=== PATIENT | male | born 1985 | race Caucasian/White ===

== ENCOUNTER 2019-12-18 19:13 | Emergency (ER) | payer SELFPAY ==
[~2019-12-18] VITALS: Ht 162.6 cm; Wt 72.6 kg
[2019-12-18 19:53] VITALS: BP 98/65
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
--- NOTE | 2019-12-19 00:07 | NUR ---
PT AMBULATED TO BED #10 WITH STEADY GAIT
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
--- NOTE | 2019-12-19 00:15 | NUR ---
DR. CARMEN CHINO AT BEDSIDE.
[2019-12-19] MEDS ORDERED: KETOROLAC 60 MG/2 ML VIAL IM ONE (00:30)
[2019-12-19] MEDS ORDERED: BACITRACIN OINT 500 UNITS/GM PKT TP ONE (00:30)
--- NOTE | 2019-12-19 00:45 | NUR ---
PT WRAPPED WITH 3" XANDER WRAP ON RIGHT KNEE. PT WOUNDS CLEANED WITH NORMAL SALINE AND 2X2 GUAZE PADS, PT WOUNDS DRESSED WITH BANDAIDS ON BI-LATERAL KNEES, WRIST AND ELBOWS.
[2019-12-19 01:09] VITALS: BP 105/60
--- NOTE | 2019-12-19 01:10 | NUR ---
Patient discharged with v/s stable. Written and verbal after care instructions given and explained. Patient alert, oriented and verbalized understanding of instructions. Ambulatory with steady gait. All questions addressed prior to discharge. ID band removed. Patient advised to follow up with PMD. Rx of NAPROSYN, NORCO given. Patient nik wrap on right knee +cms. Patient educated on indication of medication including possible reaction and side effects. Opportunity to ask questions provided and answered.
== END 2019-12-19 01:09 | disposition home or self-care (01) ==
LOC: MED 19:13
DX: S63.501A Unspecified sprain of right wrist, initial encounter (principal); S80.01XA Contusion of right knee, initial encounter; S80.211A Abrasion, right knee, initial encounter; V43.52XA Car driver injured in collision with other type car in traffic accident, initial encounter; Y93.89 Activity, other specified; Y92.89 Other specified places as the place of occurrence of the external cause; Y99.8 Other external cause status
CPT/HCPCS: 73110; 73562; 96372; 99283; J1885